=== PATIENT | male | born 1980 | race Caucasian/White ===

== ENCOUNTER 2018-10-27 15:29 | Emergency (ER) | payer BC ==
[~2018-10-27] VITALS: Ht 180.3 cm; Wt 68.0 kg
[2018-10-27 16:12] VITALS: BP 130/75
--- NOTE | 2018-10-27 16:49 | NUR ---
Patient discharged to home in stable condition. Written and verbal after care instructions given. Patient verbalizes understanding of instruction.
== END 2018-10-27 16:59 | disposition home or self-care (01) ==
LOC: ER 15:31
DX: H69.81 Other specified disorders of Eustachian tube, right ear (principal); F17.200 Nicotine dependence, unspecified, uncomplicated; Z98.890 Other specified postprocedural states; Z60.2 Problems related to living alone

== ENCOUNTER 2019-09-15 22:38 | Emergency (ER) | payer BC ==
[~2019-09-15] VITALS: Ht 180.3 cm; Wt 68.0 kg
[2019-09-15 23:02] VITALS: BP 121/77
== END 2019-09-15 23:30 | disposition home or self-care (01) ==
LOC: ER 22:38
DX: N47.1 Phimosis (principal); Z98.890 Other specified postprocedural states; Z60.2 Problems related to living alone